=== PATIENT | female | born 1995 | race Asian ===

== ENCOUNTER 2017-05-22 17:26 | Emergency (ER) | payer MEDICAID ==
[2017-05-22 17:36] VITALS: TEMP 98.8
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
[2017-05-22 18:39] VITALS: BP 121/89; PULSE 85; RESP 14; O2SAT 98
== END 2017-05-22 18:40 | disposition home or self-care (01) ==
DX: S09.90XA Unspecified injury of head, initial encounter (principal); S46.912A Strain of unspecified muscle, fascia and tendon at shoulder and upper arm level, left arm, initial encounter; S70.02XA Contusion of left hip, initial encounter; S80.219A Abrasion, unspecified knee, initial encounter; S50.319A Abrasion of unspecified elbow, initial encounter; V18.0XXA Pedal cycle driver injured in noncollision transport accident in nontraffic accident, initial encounter; Y99.8 Other external cause status; Y93.55 Activity, bike riding